=== PATIENT | female | born 1980 | race American Indian/Alaskan Native ===

== ENCOUNTER 2016-09-12 15:41 | Outpatient (CLI) | payer BC, OTHER | END 2016-09-12 15:42 | disposition home or self-care (01) | LOC: LABHHL 15:41 | PROVIDERS: ATTEND Surgery | DX: M79.9 Soft tissue disorder, unspecified (principal); R22.2 Localized swelling, mass and lump, trunk | CPT/HCPCS: 88305 ==

== ENCOUNTER 2020-07-04 08:28 | Outpatient (CLI) | payer BC ==
--- NOTE | 2020-07-04 10:13 | Mammography Report ---
DIGITAL SCREENING MAMMOGRAM WITH TOMOSYNTHESIS WITH CAD, 07/04/2020 CLINICAL INFORMATION / INDICATION: Routine Screening Mammography. TECHNIQUE: Digital bilateral 2D and 3D mammography with tomosynthesis was obtained in the craniocaud al and mediolateral oblique projections. Computer-Aided Detection (CAD) analysis was used for interp retation of this study. COMPARISON: Prior mammogram 10/06/2017 FINDINGS: Breast Density: The breasts are extremely dense, which lowers the sensitivity of mammography. No dominant mass, suspicious calcifications, or architectural distortion in either breast. There has been no significant change compared with the prior examinations. IMPRESSION: No mammographic evidence of malignancy. Follow up recommendation: Routine yearly BI-RADS Category 1: Negative. A "normal" or negative report should not discourage follow up or biopsy of a clinically significant f inding. A written summary of these findings will be mailed to the patient. The patient will be entered into a mammography reporting system which will generate a reminder letter for the patient's next appointmen t at the appropriate interval. The [employer] recommends yearly mammograms starting at age 40 and continuing as l aleta as a woman is in good health. Breast MRI is recommended for women with an approximate 20-25% or greater lifetime risk of breast cancer, including women with a strong family history of breast or ova waqar cancer or who have been treated for Hodgkin's disease. Signer Name: Debbie Martinez MD Signed: 07/04/2020 10:09 AM Workstation Name: [id number]
== END 2020-07-04 08:29 | disposition home or self-care (01) ==
LOC: SPVWC 08:28
PROVIDERS: ATTEND Surgery
DX: Z12.31 Encounter for screening mammogram for malignant neoplasm of breast (principal)
CPT/HCPCS: 77063; 77067

== ENCOUNTER 2020-07-18 08:27 | Outpatient (CLI) | payer BC ==
[2020-07-18 09:46] LABS: Blood Urea Nitrogen 10 mg/dL (7-17)
--- NOTE | 2020-07-18 10:49 | Cat Scan Report ---
CT CHEST WITH IV CONTRAST INDICATION: Chest wall mass.. COMPARISON: None available. TECHNIQUE: All CT scans at this location are performed using CT dose reduction for ALARA by means of automated e xposure control. Axial CT images were obtained through the chest after IV contrast. FINDINGS: Upper Abdomen: There are numerous hypodense lesions within the liver which demonstrate peripheral, no dular, discontinuous enhancement. The largest in the included right lobe measures 3.8 cm on axial vandana ge 124. These are consistent with hepatic hemangiomas. Skeletal System: No acute abnormality. Chest: Great Vessels: No acute abnormality. Heart: Normal. Mediastinum & Giulia: No significant abnormality. Lungs: No acute air space or interstitial disease. Pleura: No significant pleural effusion. No pneumothorax. Additional Findings: There are a few borderline enlarged left axillary nodes, the largest measures 1.9 x 1.3 cm on axial i mage 21. Within the lateral left lower chest wall, there is asymmetric fat density consistent with nonencapsul ated lipoma. Given that no capsule is seen, measurements are difficult, this is approximately 7.2 x 2 .8 cm on axial image 79. IMPRESSION: 1. Lipomatous lesion in the lateral left chest wall has no aggressive/concerning features and is like ly a simple subcutaneous lipoma. Measurements are difficult given the fact that it appears unencapsul ated or poorly encapsulated. 2. Borderline enlarged right axillary nodes are nonspecific. Follow-up is recommended with ultrasound to confirm stability and 3 months. 3. Presumed hepatic hemangiomas. Signer Name: Maximino Mcknight MD Signed: 07/18/2020 10:45 AM Workstation Name: [id number]
== END 2020-07-18 08:28 | disposition home or self-care (01) ==
LOC: CT 08:27
PROVIDERS: ATTEND Surgery
DX: N63.23 Unspecified lump in the left breast, lower outer quadrant (principal); K76.9 Liver disease, unspecified; R59.0 Localized enlarged lymph nodes; D17.79 Benign lipomatous neoplasm of other sites; D18.09 Hemangioma of other sites
CPT/HCPCS: 36415; 71260; 82565; 84520; Q9967

== ENCOUNTER 2020-08-30 07:52 | Day surgery (SDC) | payer BC ==
[~2020-08-30 07:52] MED LIST: ACETAMINOPHEN 500 MG TAB PO SCH; BUPIVACAINE/PF (0.25%) 2.5 MG/ML 30 ML VIAL INFILTRATI ONE; CELECOXIB 200 MG CAP PO NR; GABAPENTIN 300 MG CAP PO NR; LACTATED RINGERS 1,000 ML IV SCH; LIDOCAINE (1%) 10 MG/1 ML VIAL 20 ML MDV INFILTRATI ONE; MIDAZOLAM 2 MG/2 ML INJ IV NR; ceFAZolin/STERILE WATER 2 GM/20 ML SYRINGE IV NR
[2020-08-30] MEDS ORDERED: dexAMETHasone 20 MG/5 ML VIAL ONE (08:17)
[2020-08-30] MEDS ORDERED: ONDANSETRON 4 MG/2 ML INJ ONE (08:17)
[2020-08-30] MEDS ORDERED: KETOROLAC 30 MG/1 ML INJ ONE (08:17)
[2020-08-30] MEDS ORDERED: LIDOCAINE MPF (2%) 20 MG/1 ML VIAL 5 ML ONE (08:17)
[2020-08-30] MEDS ORDERED: propofoL 200 MG/20 ML VIAL IV ONE (08:17)
--- NOTE | 2020-08-30 09:10 | Anesthesia Day of Surgery ---
Anesthesia Day of Surgery - Day of Surgery Patient Examined: Yes Patient H&P Reviewed: Yes Patient is NPO: Yes
--- NOTE | 2020-08-30 09:10 | Anesthesia Consultation ---
Anesthesia Consult and Med Hx Date of service: 08/30/20 - Airway Anesthetic Teeth Evaluation: Good ROM Head & Neck: Adequate Mental/Hyoid Distance: Adequate Mallampati Class: Class III Intubation Access Assessment: Possibly Difficult - Pre-Operative Health Status ASA Pre-Surgery Classification: ASA1 Proposed Anesthetic Plan: General - Pulmonary Hx Smoking: No Hx Respiratory Symptoms: No - Cardiovascular System Hx Hypertension: No - Central Nervous System CVA: No - Endocrine Hx Renal Disease: No Hx Liver Disease: No Hx Insulin Dependent Diabetes: No Hx Non-Insulin Dependent Diabetes: No Hx Thyroid Disease: No - Other Systems Hx Obesity: No
[2020-08-30] MEDS ORDERED: HYDROmorphone 1 MG/1 ML INJ IV PRN (09:30)
[2020-08-30] MEDS ORDERED: oxyCODONE /ACETAMINOPHEN 5-325MG TAB PO PRN (09:30)
[2020-08-30] MEDS ORDERED: ONDANSETRON 4 MG/2 ML INJ IV PRN (09:30)
[2020-08-30] MEDS ORDERED: LIDOCAINE (1%) 10 MG/1 ML VIAL 20 ML MDV ONE (09:53)
[2020-08-30] MEDS ORDERED: BUPIVACAINE/PF (0.25%) 2.5 MG/ML 30 ML VIAL INFILTRATI ONE ×2 (09:54→11:10)
--- NOTE | 2020-08-30 10:07 | Short Stay Summary ---
Short Stay Documentation Date of service: 08/30/20 - History H&P: obtained from office - Allergies and Medications Current Medications: Allergies No Known Allergies Allergy (Verified 08/23/20 15:44) Home Medications Medication Instructions Recorded Confirmed Last Taken Type Ibuprofen [Ibu-200] 200 mg PO PRN PRN 08/23/20 08/30/20 08/24/20 History Meloxicam [Mobic] 15 mg PO DAILY PRN 08/23/20 08/30/20 08/29/20 09:00 History Ibuprofen [Motrin 800 MG tab] 800 mg PO Q8HR PRN #12 tablet 08/30/20 Unknown Rx Active Medications Acetaminophen (Acetaminophen 500 Mg Tab) 1,000 mg PO PREOP KAMAR Stop: 08/30/20 21:00 Last Admin: 08/30/20 09:28 Dose: 1,000 mg Documented by: Cefazolin Sodium (Cefazolin/Sterile Water 2 Gm/20 Ml Syringe) 2 gm IV PREOP NR Stop: 08/30/20 23:59 Celecoxib (Celecoxib 200 Mg Cap) 200 mg PO PREOP NR Stop: 08/30/20 21:00 Last Admin: 08/30/20 09:28 Dose: 200 mg Documented by: Gabapentin (Gabapentin 300 Mg Cap) 300 mg PO PREOP NR Stop: 08/30/20 21:00 Last Admin: 08/30/20 09:28 Dose: 300 mg Documented by: Hydromorphone HCl (Hydromorphone 1 Mg/1 Ml Inj) 0.5 mg IV Q10MIN PRN PRN Reason: Pain , Severe (7-10) Stop: 08/30/20 17:00 Lactated Ringer's (Lactated Ringers) 1,000 mls @ 100 mls/hr IV DIRECT KAMAR Stop: 08/30/20 23:59 Last Admin: 08/30/20 09:35 Dose: 100 mls/hr Documented by: Midazolam HCl (Midazolam 2 Mg/2 Ml Inj) 2 mg IV PREOP NR Stop: 08/30/20 21:00 Ondansetron HCl (Ondansetron 4 Mg/2 Ml Inj) 4 mg IV ONCE PRN PRN Reason: Nausea And Vomiting Stop: 08/30/20 18:00 Oxycodone/Acetaminophen (Oxycodone /Acetaminophen 5-325mg Tab) 1 tab PO ONCE PRN PRN Reason: Pain, Moderate (4-6) Stop: 08/30/20 17:00 - Brief post op/procedure progress note Date of procedure: 08/30/20 Pre-op diagnosis: Left lateral breast/chest wall lipoma Post-op diagnosis: same Procedure: Left lateral breast/chest wall lipoma excisional biopsy Anesthesia: GETA Findings: Left lipoma excision Surgeon: GLADYS DOHERTY Estimated blood loss: minimal Pathology: list Specimen disposition: to lab Condition: stable - Disposition Condition at discharge: Good Disposition: - TO HOME OR SELFCARE Short Stay Discharge Plan Activity: other (no heavy lifting) Diet: regular Wound: keep clean and dry (wear breast binder; may shower in 48 hours; no baths) Follow up with: GLADYS DOHERTY MD [Staff Physician] - 7 Days Prescriptions: Ibuprofen [Motrin 800 MG tab] 800 mg PO Q8HR PRN #12 tablet PRN Reason: Pain , Severe (7-10)
--- NOTE | 2020-08-30 10:12 | Operative Report ---
Operative Report Operative Report: Operative Report: August 30, 2020 Preoperative diagnosis: Left lateral breast/chest wall lipoma of lower outer quadrant Postoperative diagnosis: Same Procedure: Complex left lateral breast/chest wall lipoma excisional biopsy of lower outer quadrant Surgeon: Mignon Thrasher MD Newborn Hearing Screener: Lidia Loza MD Anesthesia: General Findings: Left lateral breast/chest wall lipoma of 8.5x7 cm Complications: None EBL: Minimal Disposition: PACU in good condition Indications for operative procedure: This is a 40-year-old young lady with know left lateral breast/chest wall lipoma of the lower outer quadrant of at least 7- 9 cm. Recommendations for excisional biopsy given significant increase in size; patient also with discomfort. Recent CT chest with findings typical for a lipoma. Patient wished to proceed with the above procedure. Procedure in detail: Patient was taken to the operating room and was laid supine. Gen. anesthesia was administered. Left breast and axilla were prepped and draped in the normal sterile operative fashion. Timeout was performed. Ultrasound was used as well for identification of known left lipoma of lateral breast/chest wall of lower outer quadrant. A lateral breast incision was made around the 5:00 position lateral to the IMF with a 15 blade knife and dissection taken down to subcutaneous tissues. The superior breast tissues were opened anterior to the mass using the Bovie cautery. The lipoma was the grasped and appropriately dissected free with the aid of the Bovie cautery and using blunt dissection with [place] tonsile. Capsule of lipoma excised with lipoma as well. Superior aspect of lipoma was adhesive close to skin but carefully dissected free. Complex excision performed. Hemostasis was obtained with the Bovie cautery. Specimen was sent to pathology. Ultrasound used and no other suspicious lesions present. The breast cavity was appropriately irrigated and suctioned. Hemostasis obtained using the Bovie cautery and then noted. Deep breast tissue were approximated and closed using interrupted 3-0 Vicryl and the subcutaneous tissues approximated and closed using interrupted 3-0 Vicryl followed by closing of the skin with a running 4-0 Monocryl and dermabond. The patient tolerated surgery very well and she was awaken from anesthesia without any complication and transported to PACU in good condition.
[2020-08-30] MEDS ORDERED: TRIAMCINOLONE 40 MG/1 ML INJ ONE (10:45)
[2020-08-30] MEDS ORDERED: SODIUM CHLORIDE 0.9% IRR 1,500 ML BOTTLE IR ONE (11:00)
[2020-08-30] MEDS ORDERED: LIDOCAINE (1%) 10 MG/1 ML VIAL 20 ML MDV INFILTRATI ONE (11:10)
[2020-08-30] MEDS ORDERED: TRIAMCINOLONE 40 MG/1 ML INJ IM ONE (11:11)
[2020-08-30] MEDS ORDERED: IBUPROFEN 800 MG TAB PO PRN (12:11)
[2020-08-30] MEDS ORDERED: IBUPROFEN 800 MG TAB ONE (12:20)
[2020-08-30 12:52] VITALS: BP 130/91
[2020-08-30] MEDS ORDERED: BACITRACIN/POLYMYXIN B OINT 28.35 GM TP SCH (13:30)
--- NOTE | 2020-08-30 14:47 | Post Anesthesia Evaluation ---
- Post Anesthesia Evaluation Patient Participated: Yes Airway Patent: Yes Stable Respiratory Function: Yes Nausea/Vomiting: No Temp > 96.8F: Yes Pain Manageable: Yes Adequeate Hydration: Yes Anesthesia Complications: No
== END 2020-08-30 13:05 | disposition home or self-care (01) ==
LOC: OR 07:52
PROVIDERS: ATTEND Surgery
DX: D17.1 Benign lipomatous neoplasm of skin and subcutaneous tissue of trunk (principal); D17.39 Benign lipomatous neoplasm of skin and subcutaneous tissue of other sites; Z79.899 Other long term (current) drug therapy; Z72.89 Other problems related to lifestyle; Z98.890 Other specified postprocedural states; Z80.3 Family history of malignant neoplasm of breast; Z80.1 Family history of malignant neoplasm of trachea, bronchus and lung; Z80.42 Family history of malignant neoplasm of prostate; Z80.8 Family history of malignant neoplasm of other organs or systems
CPT/HCPCS: 21552; 81025; 88304; J0690; J1100; J2405; J2704; J3301; J7120; J1885; J2250